=== PATIENT | male | born 1945 | race Caucasian/White ===

== ENCOUNTER → 2023-12-27 08:59 | Outpatient (CLI) | payer MEDICARE, SELFPAY ==
[2023-12-27 19:36] LABS: Add Manual Diff / Slide Review NO; Basophils Absolute Auto 0 /uL (0-100); Basophils Percent Auto 0.6 % (0-2); Eosinophils Absolute Auto 100 /uL (0-450); Eosinophils Percent Auto 2.5 % (2-4); Hematocrit 39.8 % (41-53); Hemoglobin 13.7 g/dL (13.5-17.5); Lymphocytes Absolute Auto 800 /uL (1100-4500); Lymphocytes Percent Auto 19.8 % (25-40); Mean Corpuscular HGB Conc 34.6 % (30-36); Mean Corpuscular Hemoglobin 31.1 PG (26-34); Monocytes Absolute Auto 300 /uL (0-900); Monocytes Percent Auto 8.7 % (3-14); Neutrophils Absolute Auto 2600 /uL (1500-7000); Neutrophils Percent Auto 68.4 % (50-75); Platelet Count 212 X10^3/uL (150-400); Red Blood Cell Count 4.42 X10^6/uL (4.5-5.9); Red Cell Distribution Width 14.8 % (11.6-14.8); White Blood Cell Count 3.8 X10^3/uL (4.5-11.0)
[2023-12-27 19:42] LABS: Alanine Aminotransferase 14 IU/L (<50); Albumin 3.7 g/dL (3.5-5.0); Albumin Globulin Ratio 1.3 (1.0-2.8); Alkaline Phosphatase 94 U/L (38-126); Aspartate Aminotransferase 28 IU/L (17-59); BUN Creatinine Ratio 11.5 (6-22); Bilirubin Total 0.5 mg/dL (0.2-1.3); Blood Urea Nitrogen 9 mg/dL (9-20); Calcium 8.9 mg/dL (8.4-10.2); Carbon Dioxide 29 mmol/L (22-32); Chloride 102 mmol/L (98-107); Cholesterol 157 mg/dL (140-199); Estimated Glomerular Filt Rate > 60 mL/min (>60); Globulin 2.8 g/dL (1.7-4.1); Glucose 83 mg/dL (80-110); HDL Cholesterol 44 mg/dL (40-60); HEMOLYSIS < 15 (0-50); LDL Cholesterol Calculated 94 mg/dL (<100); Potassium 4.1 mmol/L (3.4-5.1); Sodium 137 mmol/L (137-145); Total Protein 6.5 g/dL (6.3-8.2); Triglycerides 94 mg/dL (35-150)
[2023-12-27 19:56] LABS: Prothrombin Time 271.8 SECONDS (9.4-12.5)
[2023-12-27 20:09] LABS: TSH w/ Reflex to FT4 1.35 uIU/mL (0.47-4.68)
[2023-12-27 20:22] LABS: INR 22.9 (0.9-1.3)
[2023-12-27 20:28] LABS: Vitamin B12 392 pg/mL (239-931)
== END ==
PROVIDERS: PCP Family Medicine; Visit Provider Family Medicine
DX: Z13.6 Encounter for screening for cardiovascular disorders (principal); R41.3 Other amnesia; Z13.1 Encounter for screening for diabetes mellitus; Z13.220 Encounter for screening for lipoid disorders; Z71.85 Encounter for immunization safety counseling; I48.92 Unspecified atrial flutter
CPT/HCPCS: 80053; 80061; 82607; 84443; 85025; 85610

== ENCOUNTER → 2024-01-20 14:31 | Outpatient (CLI) | payer MEDICARE, SELFPAY ==
--- NOTE | 2024-01-20 | DI.ECHO.S_ITS ---
[facility] : : [address] : : [place] : : [id number] : : Phone: [phone] Echocardiogram Report + + :Name: KAVITHA SULLIVAN V Study Date: 01/20/2024 Height: 71 in : :[facility] ReadingLocation: Weight: 160 lb : : Gender: Male BSA: 1.9 m2 : :: 1945 Age: 78 yrs BP: 124/72 mmHg: :Reason For Study: NEW ONSET ATRIAL FLUTTER : :Ordering Physician: ERIKA : :JENNIFER Performed By: Liban Bishop : :Referring: JENNIFER JAMES : + + Interpretation Summary The patient was in atrial flutter with heart rates between 46-55 bpm during the exam. The ejection fraction is estimated to be 50-55%. Diastolic function could not be accurately assessed due to unobtainable data. The left atrium is moderately dilated. The right ventricle is mildly dilated. The right ventricular systolic function is normal. The right atrium is mildly dilated. There is mild aortic regurgitation. There is mild to moderate tricuspid regurgitation. Right ventricular systolic pressure is estimated to be 30 mmHg plus the clinically estimated CVP which cannot be estimated on this exam. There is a moderately large left-sided pleural effusion. Procedure: A two-dimensional transthoracic echocardiogram with color flow and Doppler was performed. The study quality was technically adequate. There is no prior echocardiogram noted for this patient. The patient was in atrial flutter with heart rates between 46-55 bpm during the exam. Left Ventricle: The left ventricle is normal in size. Left ventricular wall thickness is borderline increased. There is no ventricular septal defect visualized. The ejection fraction is estimated to be 50-55%. Diastolic function could not be accurately assessed due to unobtainable data. Right Ventricle: The right ventricle is mildly dilated. The right ventricular systolic function is normal. Atria: The left atrium is moderately dilated. The right atrium is mildly dilated. There is no Doppler evidence for an atrial septal defect. Mitral Valve: The mitral valve is normal in structure and function. There is trace mitral regurgitation. Aortic Valve: The aortic valve is trileaflet. The aortic valve opens well. There is no aortic valve stenosis. There is mild aortic regurgitation. Tricuspid Valve: The tricuspid valve is normal. There is mild to moderate tricuspid regurgitation. Right ventricular systolic pressure is estimated to be 30 mmHg plus the clinically estimated CVP which cannot be estimated on this exam. Pulmonic Valve: The pulmonic valve is not well visualized. The pulmonic valve is not well seen, but is grossly normal. There is no pulmonic valvular regurgitation. Great Vessels: The aortic root is normal size. The dimensions of the ascending aorta are normal. The pulmonary artery is normal size. The inferior vena cava was not visualized. Pericardium/ Pleura There is no pericardial effusion. There is a moderately large left-sided pleural effusion. MMode/2D Measurements & Calculations LVIDd: 4.4 cm LVOT diam: 2.3 cm LVIDs: 3.3 cm Ao root diam: 3.7 cm FS: 25.4 % asc Aorta Diam: 3.6 cm EPSS: 0.58 cm Ao Arch Diam (Prox Trans): 2.6 cm IVSd: 1.1 cm LVPWd: 1.0 cm LV nichols. diameter/BSA (cm/m^2): 2.3 LV sys. diameter/BSA (cm/m^2): 1.7 LA A2 area: 26.2 cm2 RA long axis: 5.6 cm LA A4 area: 21.4 cm2 RA area: 21.3 cm2 LA length (vol): 5.6 cm RA vol: 68.9 ml LA vol: 84.8 ml RA : 35.9 ml/m2 LA vol index: 44.2 ml/m2 RVD1 (basal): 4.3 cm RVD2 (mid): 3.7 cm TAPSE: 2.3 cm Doppler Measurements & Calculations Ao V2 max: 132.4 cm/sec LVOT Max Nic: 94.0 cm/sec Ao V2 mean: 81.0 cm/sec LV V1 max P.5 mmHg Ao max P.0 mmHg LV V1 VTI: 19.4 cm Ao mean P.1 mmHg HERMAN(I,D): 2.8 cm2 Ao V2 VTI: 27.5 cm HERMAN(V,D): 2.8 cm2 sev ratio: 0.71 HERMAN indexed to BSA (cm^2/m^2): 1.5 MV E max nic: 92.2 cm/sec TR max nic: 264.7 cm/sec MV A max nic: 39.8 cm/sec TR max P.1 mmHg MV E/A: 2.3 PA V2 max: 68.5 cm/sec Med Peak E' Nic: 7.6 cm/sec PA V2 mean: 50.5 cm/sec E/E' med: 12.1 PA mean P.1 mmHg Lat Peak E' Nic: 8.0 cm/sec PA pr(Accel): 49.0 mmHg E/E' lat: 11.6 E/e' average: 11.8 MV dec time: 0.12 sec SV(OT): 77.5 ml Reading Physician:08:36 AM
== END ==
PROVIDERS: PCP Family Medicine; Referring Provider Family Medicine; Visit Provider Family Medicine
DX: I48.92 Unspecified atrial flutter (principal); R06.02 Shortness of breath; I08.2 Rheumatic disorders of both aortic and tricuspid valves
CPT/HCPCS: 93306

== ENCOUNTER → 2024-05-31 09:31 | Outpatient (CLI) | payer MEDICARE, SELFPAY ==
[2024-05-31 22:05] LABS: Add Manual Diff / Slide Review NO; Basophils Absolute Auto 0 /uL (0-100); Basophils Percent Auto 0.5 % (0-2); Eosinophils Absolute Auto 100 /uL (0-450); Hemoglobin 13.8 g/dL (13.5-17.5); Lymphocytes Absolute Auto 800 /uL (1100-4500); Lymphocytes Percent Auto 16.2 % (25-40); Mean Corpuscular HGB Conc 34.5 % (30-36); Mean Corpuscular Hemoglobin 31.7 PG (26-34); Mean Corpuscular Volume 91.9 fL (80-100); Monocytes Absolute Auto 500 /uL (0-900); Monocytes Percent Auto 9.7 % (3-14); Neutrophils Absolute Auto 3400 /uL (1500-7000); Neutrophils Percent Auto 70.6 % (50-75); Platelet Count 240 X10^3/uL (150-400); Red Blood Cell Count 4.35 X10^6/uL (4.5-5.9); Red Cell Distribution Width 15.2 % (11.6-14.8); White Blood Cell Count 4.8 X10^3/uL (4.5-11.0)
[2024-05-31 22:06] LABS: Reticulocyte Count, Percent 1.3 % (0.9-2.6)
[2024-05-31 22:12] LABS: BUN Creatinine Ratio 10.6 (6-22); Blood Urea Nitrogen 9 mg/dL (9-20); Calcium 9.1 mg/dL (8.4-10.2); Carbon Dioxide 33 mmol/L (22-32); Chloride 101 mmol/L (98-107); Estimated Glomerular Filt Rate > 60 mL/min (>60); Glucose 86 mg/dL (80-110); HEMOLYSIS < 15 (0-50); Potassium 4.3 mmol/L (3.4-5.1); Sodium 137 mmol/L (137-145)
[2024-05-31 22:45] LABS: HEMOLYSIS < 15 (0-50); Iron 73 ug/dL (49-181)
[2024-05-31 23:00] LABS: Percent Iron Saturation 35 % (20-50); Total Iron Binding Capacity 208 ug/dL (261-462); Transferrin 167 mg/dL (206-381)
[2024-05-31 23:23] LABS: Thyroid Stimulating Hormone 1.88 uIU/mL (0.47-4.68)
[2024-05-31 23:43] LABS: Vitamin B12 417 pg/mL (239-931)
== END ==
PROVIDERS: PCP Family Medicine; Visit Provider Family Medicine
DX: D64.9 Anemia, unspecified (principal); I48.92 Unspecified atrial flutter; R06.02 Shortness of breath; J90 Pleural effusion, not elsewhere classified; F03.90 Unspecified dementia, unspecified severity, without behavioral disturbance, psychotic disturbance, mood disturbance, and anxiety
CPT/HCPCS: 80048; 82607; 83540; 83550; 84443; 85025; 85045

== ENCOUNTER → 2024-08-27 15:10 | Outpatient (CLI) | payer MEDICARE, SELFPAY ==
[2024-08-27 19:03] LABS: Alanine Aminotransferase 21 IU/L (<50); Albumin Globulin Ratio 1.7 (1.0-2.8); Alkaline Phosphatase 78 U/L (38-126); Aspartate Aminotransferase 28 IU/L (17-59); BUN Creatinine Ratio 15.3 (6-22); Blood Urea Nitrogen 13 mg/dL (9-20); Calcium 8.9 mg/dL (8.4-10.2); Carbon Dioxide 30 mmol/L (22-32); Chloride 102 mmol/L (98-107); Estimated Glomerular Filt Rate > 60 mL/min (>60); Globulin 2.4 g/dL (1.7-4.1); Glucose 111 mg/dL (70-99); HEMOLYSIS < 15 (0-50); Potassium 4.1 mmol/L (3.4-5.1); Sodium 137 mmol/L (137-145); Total Protein 6.4 g/dL (6.3-8.2)
[2024-08-27 19:16] LABS: Prothrombin Time 108.1 SECONDS (9.4-12.5)
[2024-08-27 19:27] LABS: Add Manual Diff / Slide Review NO; Basophils Absolute Auto 0 /uL (0-100); Basophils Percent Auto 0.8 % (0-2); Eosinophils Absolute Auto 200 /uL (0-450); Eosinophils Percent Auto 2.9 % (2-4); Hematocrit 35.9 % (41-53); Hemoglobin 12.4 g/dL (13.5-17.5); Lymphocytes Absolute Auto 1000 /uL (1100-4500); Lymphocytes Percent Auto 17.6 % (25-40); Mean Corpuscular HGB Conc 34.6 % (30-36); Mean Corpuscular Hemoglobin 31.1 PG (26-34); Monocytes Absolute Auto 600 /uL (0-900); Monocytes Percent Auto 10.3 % (3-14); Neutrophils Absolute Auto 3900 /uL (1500-7000); Neutrophils Percent Auto 68.4 % (50-75); Platelet Count 258 X10^3/uL (150-400); Red Blood Cell Count 3.99 X10^6/uL (4.5-5.9); Red Cell Distribution Width 15.1 % (11.6-14.8); White Blood Cell Count 5.8 X10^3/uL (4.5-11.0)
[2024-08-27 19:31] LABS: Thyroid Stimulating Hormone 0.971 uIU/mL (0.47-4.68)
[2024-08-27 20:57] LABS: INR 10.1 (0.9-1.3); PTT Partial Thromboplastin Tim 115 SECONDS (25.1-36.5)
== END ==
PROVIDERS: PCP Family Medicine; Visit Provider Family Medicine
DX: D64.9 Anemia, unspecified (principal); Z79.01 Long term (current) use of anticoagulants; R79.1 Abnormal coagulation profile
CPT/HCPCS: 80053; 84443; 85025; 85610; 85730